=== PATIENT | female | born 1985 | race African-American/Black ===

== ENCOUNTER 2019-06-01 09:51 | Observation (INO) ==
--- NOTE | 2019-06-01 10:35 | Diag Imaging Result Doc PS360 ---
EXAM: CHEST-2 VIEWS - 06/01/2019 HISTORY: palpitations TECHNIQUE: Chest two views COMPARISON: 10/03/2011 FINDINGS: Heart size appears upper normal and stable. The lungs appear clear. There is no pleural effusion or pneumothorax identified. IMPRESSION: No evidence of acute disease. Electronically signed by Nima Valdes 06/01/2019 10:32 AM
[2019-06-01] MEDS ORDERED: LOPRESSOR IV ONE (10:44)
[2019-06-01 11:21] LABS: URINE SOURCE CLEAN CATCH
--- NOTE | 2019-06-01 11:21 | PROVIDER DOCUMENTATION ---
This chart was entered by Negar [place] Scribe, acting as scribe for Minerva Mcdonald MD. HPI-Cardiac General - General Chief Complaint: Palpitations Stated Complaint: HEART RACING Time Seen by Provider: 06/01/19 10:48 Source: patient, family Allergies/Adverse Reactions: Patient Allergies Allergy/AdvReac Type Severity Reaction Status Date / Time Penicillins Allergy Unknown Verified 09/25/18 21:00 Home Medications: Home Medication List Medication Instructions Recorded Confirmed Last Taken Type Azithromycin [Zithromax Z-Uriel] 250 mg PO DIRECTED #1 pkg 01/18/15 Unknown Rx Meclizine HCl [Antivert] 25 mg PO QHS #14 tablet 01/18/15 Unknown Rx Cephalexin [Keflex] 500 mg PO TID #20 cap 09/25/18 Unknown Rx Ibuprofen [Motrin] 600 mg PO Q6HR #30 tab 09/25/18 Unknown Rx - History of Present Illness-Cardiac Nature of Presenting Problem: Pt is a 34 yobf with c/o of a racing heart rate that she woke up with at 6 am this morning. Pt states that laying on her right side reduced symptoms but whenever she moved her heart would speed back up. Pt denies hx of heart problems and states that testing last year at PCP was -thyroid problems. Pt states she has vertigo but is otherwise healthy. Pt states she started taking vit D 5000 mg for the first time last night but denies any medication changes. Endorses lightheadedness, slight headache and urinary frequency. Pt is alert and nontoxic in appearance. Location: reports: central Quality of Pain: reports: none Severity in ED: moderate Onset/Duration: abrupt, 4-6 hours ago Timing: still present, constant Context/Activities at Onset: reports: sleep Palpitation Quality: irregular History of arrythmia: reports: none Nitro Today/Relief: reports: no nitro taken today Aspirin Treatment Today: reports: no aspirin today Prior Chest Pain/Cardiac Workup: reports: no prior chest pain, no prior cardiac workup Associated Symptoms: reports: dizziness, headache. denies: abdominal pain, back pain, diaphoresis, fatigue, fever/chills, nausea, shortness of breath, syncope, vomiting Similar Symptoms Previously?: No Review of Systems - Adult - REVIEW OF SYSTEMS - ADULT Constitutional: denies: chills Eyes: reports: no symptoms reported Ears, Nose, Mouth & Throat: reports: no symptoms reported Cardiovascular: reports: see HPI, irregular heart rate, palpitations. denies: chest pain, syncope Respiratory: reports: see HPI. denies: cough, shortness of breath Gastrointestinal: reports: see HPI. denies: abdominal pain, vomiting Genitourinary: reports: see HPI, frequency Musculoskeletal: denies: back pain, muscle weakness Integumentary: reports: no symptoms reported Neurological: reports: see HPI, dizziness/vertigo, headache/migraines Psychiatric: reports: no symptoms reported Endocrine: reports: no symptoms reported Hematologic/Lymphatic: reports: no symptoms reported Allergic/Immunologic: reports: no symptoms reported All Other Systems: Reviewed and Negative Past History - Adult - PAST MEDICAL HISTORY-ADULT Review of Records: reports: Old Records Reviewed, Nursing Assessment Review, Medications Reviewed, Social history reviewed & non-contributory. Major Childhood Illnesses: reports: denies history Cardiovascular: reports: denies history Respiratory: reports: denies history Gastrointestinal: reports: denies history Genitourinary: reports: denies history Musculoskeletal: reports: denies history Neurological: reports: denies history Endocrine/Immune: reports: denies history Other Conditions: reports: other (vertigo) - PRIOR SURGERIES/PROCEDURES Surgical/Procedure History: reports: cholecystectomy, hysterectomy, - IMMUNIZATION STATUS Childhood Immunizations: See Nurse Assessment Flu Vaccine: See Nurse Assessment - FAMILY HISTORY Family History: reviewed, not pertinent - SOCIAL HISTORY Smoking: non-smoker Substance Use: denies Living Situation: family () Physical Exam-General - PHYSICAL EXAM-ADULT Initial Vital Signs Reviewed: Yes (HR 115) - CONSTITUTIONAL General Appearance: appears well, alert, no apparent distress - EYES Eyes: PERRL/EOMI, pink conjunctivae - HEAD, EARS, NOSE, MOUTH & THROAT HENMT: normocephalic/atraumatic, moist mucous membranes, normal ENT inspection - NECK Neck: non-tender, full range of motion, supple, normal inspection - RESPIRATORY Respiratory: chest non-tender, lungs clear, normal breath sounds, no respiratory distress, no accessory muscle use - CARDIOVASCULAR Cardiovascular: normal peripheral pulses, tachycardia, irregularly irregular (Afib) - GASTROINTESTINAL (ABDOMEN) Abdominal Exam: normal bowel sounds, non tender, soft - MUSCULOSKELETAL Back Exam: normal inspection, no vertebral tenderness Extremity: normal range of motion, non-tender, normal gait, normal inspection, no pedal edema - SKIN Integumentary: normal color, normal turgor, warm/dry - NEUROLOGIC Neurologic: grossly normal - PSYCHIATRIC Psych/Mental Status: normal mood/affect, normal thought content, normal thought process, oriented x 3 - HEART Score HEART Score: History: Moderately Suspicious HEART Score: ECG: Non-Specific Repolarization Disturbance/LBBB/PM HEART Score: Age: < or = 45 Years HEART Score: Risk Factors for Atherosclerotic Disease: 1 or 2 Risk Factors HEART Score: Troponin: < or = Normal Limit Total HEART Score:: 3 Progress - PLAN OF CARE/RESULTS Progress/Plan/Lab Results: Vital Signs - 8 hr 06/01/19 09:56 06/01/19 10:56 06/01/19 11:34 Temperature 97.6 F Pulse Rate 115 H 108 H 92 H Respiratory Rate 16 16 18 Blood Pressure 173/140 120/88 119/75 O2 Sat by Pulse Oximetry 98 96 96 06/01/19 13:06 Temperature Pulse Rate 98 H Respiratory Rate 13 Blood Pressure 116/89 O2 Sat by Pulse Oximetry 99 Laboratory Results - last 24 hr 06/01/19 06/01/19 06/01/19 10:40 10:40 10:40 WBC 8.85 RBC 4.76 Hgb 13.6 Hct 41.8 MCV 87.8 MCH 28.6 MCHC 32.5 L RDW Std Deviation 14.7 H Plt Count 278 MPV 10.7 H Immature Gran % (Auto) 0.2 Neut % (Auto) 39.1 L Lymph % (Auto) 48.9 [place] % (Auto) 9.0 Eos % (Auto) 2.6 Baso % (Auto) 0.2 Immature Gran # (Auto) 0.02 Neut # (Auto) 3.45 Lymph # (Auto) 4.33 H [place] # (Auto) 0.80 H Eos # (Auto) 0.23 Baso # (Auto) 0.02 PT INR PTT (Actin FS) D-Dimer, Quantitative Sodium 139 Potassium 4.5 Chloride 104 Carbon Dioxide 21 L Anion Gap 14 BUN 15 Creatinine 0.6 Estimated GFR/1.73 m2 > 60 BUN/Creatinine Ratio 25 Glucose 93 Calculated Osmolality 278 Calcium 9.8 Total Bilirubin 0.40 AST 18 ALT 18 Alkaline Phosphatase 68 Troponin T High Sens Bgh-C-Ikmlfaxwbxi Pept Total Protein 7.8 Albumin 4.4 Globulin 3.0 Albumin/Globulin Ratio 1.0 TSH 1.70 Free T4 1.36 Urine Source Urine Color Urine Turbidity Urine pH Ur Specific [place] Urine Protein Ur Glucose (Stick) Ur Ketones (Stick) Urine Blood Urine Nitrite Urine Bilirubin Urobilinogen Dipstick Urine Leukocytes Urine WBC (Auto) Urine RBC (Auto) U Epithel Cells (Auto) Urine Bacteria (Auto) Urine Opiates Screen Ur Oxycodone Screen Urine Methadone Screen U Propoxyphene Qual Ur Barbituates Screen Ur Tricyclics Screen Ur Phencyclidine Scrn Ur Amphetamines Screen U Methamphetamines Scrn U Benzodiazepines Scrn Urine Cocaine Screen U Cannabinoids Screen 06/01/19 06/01/19 06/01/19 10:40 10:40 10:40 WBC RBC Hgb Hct MCV MCH MCHC RDW Std Deviation Plt Count MPV Immature Gran % (Auto) Neut % (Auto) Lymph % (Auto) [place] % (Auto) Eos % (Auto) Baso % (Auto) Immature Gran # (Auto) Neut # (Auto) Lymph # (Auto) [place] # (Auto) Eos # (Auto) Baso # (Auto) PT 12.6 INR 0.90 PTT (Actin FS) 30.9 D-Dimer, Quantitative Sodium Potassium Chloride Carbon Dioxide Anion Gap BUN Creatinine Estimated GFR/1.73 m2 BUN/Creatinine Ratio Glucose Calculated Osmolality Calcium Total Bilirubin AST ALT Alkaline Phosphatase Troponin T High Sens 7 Zal-X-Oqljdbhnqvu Pept 198 H Total Protein Albumin Globulin Albumin/Globulin Ratio TSH Free T4 Urine Source Urine Color Urine Turbidity Urine pH Ur Specific [place] Urine Protein Ur Glucose (Stick) Ur Ketones (Stick) Urine Blood Urine Nitrite Urine Bilirubin Urobilinogen Dipstick Urine Leukocytes Urine WBC (Auto) Urine RBC (Auto) U Epithel Cells (Auto) Urine Bacteria (Auto) Urine Opiates Screen Ur Oxycodone Screen Urine Methadone Screen U Propoxyphene Qual Ur Barbituates Screen Ur Tricyclics Screen Ur Phencyclidine Scrn Ur Amphetamines Screen U Methamphetamines Scrn U Benzodiazepines Scrn Urine Cocaine Screen U Cannabinoids Screen 06/01/19 06/01/19 06/01/19 10:40 11:19 11:19 WBC RBC Hgb Hct MCV MCH MCHC RDW Std Deviation Plt Count MPV Immature Gran % (Auto) Neut % (Auto) Lymph % (Auto) [place] % (Auto) Eos % (Auto) Baso % (Auto) Immature Gran # (Auto) Neut # (Auto) Lymph # (Auto) [place] # (Auto) Eos # (Auto) Baso # (Auto) PT INR PTT (Actin FS) D-Dimer, Quantitative 0.68 H Sodium Potassium Chloride Carbon Dioxide Anion Gap BUN Creatinine Estimated GFR/1.73 m2 BUN/Creatinine Ratio Glucose Calculated Osmolality Calcium Total Bilirubin AST ALT Alkaline Phosphatase Troponin T High Sens Xyd-X-Zvziwssjlme Pept Total Protein Albumin Globulin Albumin/Globulin Ratio TSH Free T4 Urine Source CLEAN CATCH Urine Color STRAW Urine Turbidity CLEAR Urine pH 6.0 Ur Specific [place] 1.011 Urine Protein NEGATIVE Ur Glucose (Stick) NEGATIVE Ur Ketones (Stick) NEGATIVE Urine Blood TRACE A Urine Nitrite NEGATIVE Urine Bilirubin NEGATIVE Urobilinogen Dipstick NORMAL Urine Leukocytes NEGATIVE Urine WBC (Auto) <10 Urine RBC (Auto) <10 U Epithel Cells (Auto) <10 Urine Bacteria (Auto) NEGATIVE Urine Opiates Screen NONE DETECTED Ur Oxycodone Screen NONE DETECTED Urine Methadone Screen NONE DETECTED U Propoxyphene Qual NONE DETECTED Ur Barbituates Screen NONE DETECTED Ur Tricyclics Screen NONE DETECTED Ur Phencyclidine Scrn NONE DETECTED Ur Amphetamines Screen NONE DETECTED U Methamphetamines Scrn NONE DETECTED U Benzodiazepines Scrn NONE DETECTED Urine Cocaine Screen NONE DETECTED U Cannabinoids Screen NONE DETECTED Orders Category Date Time Status If abnormal EKG, order: NOW Care 06/01/19 09:59 Active CHEST-2 VIEWS [RAD] Stat Exams 06/01/19 09:59 Completed CTA [CT ANGIOGRM PULMONARY ARTERIES] [CT] Stat Exams 06/01/19 12:20 Completed CBC WITH ELECTRONIC DIFF [HEME] Stat Lab 06/01/19 10:40 Completed COMPREHENSIVE METABOLIC PANEL [CHEM] Stat Lab 06/01/19 10:40 Completed D-DIMER [COAG] Stat Lab 06/01/19 10:40 Completed FREE T4 Stat Lab 06/01/19 10:40 Completed PRO B-NATRIURETIC PEPTIDE Stat Lab 06/01/19 10:40 Completed PROTIME WITH INR [COAG] Stat Lab 06/01/19 10:40 Completed PTT [COAG] Stat Lab 06/01/19 10:40 Completed TROPONIN T HIGH SENSITIVITY Stat Lab 06/01/19 10:40 Completed TSH Stat Lab 06/01/19 10:40 Completed URINALYSIS W/POSS RFLX CULT [URINALYSIS] Stat Lab 06/01/19 11:19 Com[address] URINE DRUG SCREEN PL Stat Lab 06/01/19 11:19 Completed Metoprolol [Lopressor] Med 06/01/19 10:44 Discontinued 5 mg IV NOW ONE CP/Palp <45 No Known Cardiac Hx Stat Oth 06/01/19 09:59 Ordered EKG [EKG] Stat Ther 06/01/19 09:59 Draft Echo Spec/Color Doppler Routine Ther 06/01/19 13:29 Ordered Venous U/S Bilateral Legs Routine Ther 06/01/19 13:30 Ordered Patient with new onset afib with RVR. Given metoprolol IV and rate controlled. Ddimer slightly elevated but CTA negative for PE. Showing small pleural effusion. Other labs WNL. Spoke to Dr Daniel, recreation therapy teacher for hosp who accepted [facility] for admission. Further orders to be placed by their team Result Diagrams: 06/01/19 10:40 06/01/19 10:40 - EKG 1 Time of EKG reading by physician:: 10:40 EKG Read and Signed by:: Minerva Mcdonald EKG Interpretation (*Must complete 3 of following elements*): Abnormal Rate: 151 Rhythm: Afib ith RVR [place]: normal QRS: normal [place] Interval: normal ST Wave: normal Prior EKG Comparison: no prior EKG - XRAY 1 XRAY Study: Chest (EXAM: CHEST-2 VIEWS - 06/01/2019 HISTORY: palpitations TECHNIQUE: Chest two views COMPARISON: 10/03/2011 FINDINGS: Heart size appears upper normal and stable. The lungs appear clear. There is no pleural effusion or pneumothorax identified. IMPRESSION: No evidence of acute disease. Electronically signed by Nima Valdes 06/01/2019 10:32 AM) - CT/MRI 1 CT Study: Thorax (EXAM: CT ANGIOGRAM PULMONARY ARTERIES 06/01/2019 HISTORY: new onset afib, elevated ddimer TECHNIQUE: This exam was performed using automated exposure control, adjustment of mA or kV according to patient size, and/or use of iterative reconstruction technique. COMMENT: 3-D MIPS were performed. There are no previous studies. There are no filling defects in the pulmonary arteries. The aorta is nondistended and there is no evidence of dissection. There is a small pericardial effusion which measures 5 mm over the apex. There are no pleural fluid collections. There is no evidence of acute pulmonary parenchymal disease. There is no evidence of significant abnormality in the visualized portion of the abdomen. The regional skeleton is intact. IMPRESSION: No e vidence of pulmonary emboli. Small pericardial effusion. Electronically signed by Phil Jett 06/01/2019 12:54 PM) Departure - Departure Date of Disposition Decision: 06/01/19 Time of Disposition Decision: 13:13 DIAGNOSIS: New onset a-fib, Chest pain Disposition: ADMITTED INPATIENT 09 Certified Medical Emergency: Emergent Condition: Stable Referrals and Follow-Ups: Alicia Rodriguez CRNP [Primary Care Provider] - - Critical Care Note This patient required my direct & personal management of CC.: Yes Total Time (mins): 35 Critical Care Statement: This patient required my direct personal management to treat or rule out processes, the absence of which, could potentiallly result in sudden, clinically significant life or limb threatening deterioration. Attestation - Physician/ MURTAZA Attestation Patient care was provided by Advanced Practice Provider:: No The physician spent face to face time with patient:: Yes Advanced Practice Provider documentation review:: Supervising physician onsite and consulted in the evaluation and care of this patient. The physician did have a face to face encounter with the patient. This chart was documented by the indicated scribe, (Negar [place], Phuong) and accurately reflects the services I performed and decisions made by me, Minerva Mcdonald MD, as attested by the provider's signature.
[2019-06-01 11:36] LABS: BILIRUBIN URINE NEGATIVE (NEGATIVE); BLOOD URINE TRACE (NEGATIVE); COLOR STRAW; GLUCOSE URINE NEGATIVE (NEGATIVE); KETONE URINE NEGATIVE (NEGATIVE); LEUKOCYTES URINE NEGATIVE (NEGATIVE); NITRITE URINE NEGATIVE (NEGATIVE); PROTEIN URINE NEGATIVE (NEGATIVE); SP GRAVITY URINE 1.011; TURBIDITY URINE CLEAR (CLEAR); UROBILINOGEN URINE NORMAL (NORMAL)
[2019-06-01 11:37] LABS: UR EPITHELIAL CELLS <10 /HPF (<10); URINE BACTERIA NEGATIVE /HPF; URINE RBC <10 /HPF (<10); URINE WBC <10 /HPF (<10)
[2019-06-01 11:40] LABS: UR AMPHETAMINES QUAL NONE DETECTED (NONE DETECT); UR BARBITUATES QUAL NONE DETECTED (NONE DETECT); UR BENZODIAZEPIN QUAL NONE DETECTED (NONE DETECT); UR CANNABINOIDS QUAL NONE DETECTED (NONE DETECT); UR COCAINE QUAL NONE DETECTED (NONE DETECT); UR METHADONE QUAL NONE DETECTED (NONE DETECT); UR METHAMPHETAMINE QUAL NONE DETECTED (NONE DETECT); UR OPIATES QUAL NONE DETECTED (NONE DETECT); UR OXYCODONE QUAL NONE DETECTED (NONE DETECT); UR PCP QUAL NONE DETECTED (NONE DETECT); UR PROPOXYPHENE QUAL NONE DETECTED (NONE DETECT); UR TCA QUAL NONE DETECTED (NONE DETECT)
[2019-06-01 11:45] LABS: BASO# 0.02 X1000 (0.0-0.2); BASO% 0.2 % (0.0-0.8); EOS# 0.23 X1000 (0.0-0.7); EOS% 2.6 % (0.0-10.0); HEMATOCRIT 41.8 % (37.0-47.0); HEMOGLOBIN 13.6 g/dL (12.0-16.0); IMM GRAN# 0.02 X1000 (0.0-0.04); IMM GRAN% 0.2 % (0.0-0.5); LYMPH# 4.33 X1000 (1.2-3.4); LYMPH% 48.9 % (20.5-51.1); MCH 28.6 PG (27-31); MCHC 32.5 g/dL (33-37); MCV 87.8 FL (81-99); MPV 10.7 FL (7.4-10.4); NEUT# 3.45 X1000 (1.4-6.5); NEUT% 39.1 % (42.2-75.2); PLT 278 X1000 (130-400); RBC 4.76 XMIL (4.2-5.4); RDW 14.7 % (11.5-14.5); WBC 8.85 X1000 (4.8-10.8)
[2019-06-01 11:57] LABS: INR 0.9; PROTIME 12.6 Seconds (11.0-16.0)
[2019-06-01 11:58] LABS: PTT 30.9 Seconds (22.3-41.8)
[2019-06-01 12:04] LABS: AGAP 14; ALBUMIN 4.4 g/dL (3.5-5.0); ALKALINE PHOSPHATASE 68 U/L (32-104); BUN 15 mg/dL (8-22); CALCIUM 9.8 mg/dL (8.8-10.2); CHLORIDE 104 mmol/L (98-107); COSMO 278; CREATININE 0.6 mg/dL (0.5-0.9); ESTIMATED GFR > 60; GLUCOSE 93 mg/dL (70-104); GOT 18 U/L (10-30); GPT 18 U/L (10-36); POTASSIUM 4.5 mmol/L (3.5-5.1); SODIUM 139 mmol/L (136-145); TCO2 21 mmol/L (25-35); TOTAL PROTEIN 7.8 g/dL (6.3-8.3)
[2019-06-01 12:15] LABS: FREE T4 1.36 ng/dL (0.93-1.70); TSH 1.7 uIUmL (0.27-4.20)
--- NOTE | 2019-06-01 12:16 | EKG Report ---
Test Performed on : 06/01/2019 10:31:57 AM Test Reason : palpatations Blood Pressure : / mmHG Vent. Rate : 151 BPM Atrial Rate : 163 BPM P-R Int : 000 ms QRS Dur : 078 ms QT Int : 284 ms P-R-T Axes : 000 008 019 degrees QTc Int : 450 ms Atrial fibrillation. with rapid ventricular response. Abnormal ECG No previous ECGs available Unconfirmed Result
--- NOTE | 2019-06-01 12:56 | Diag Imaging Result Doc PS360 ---
EXAM: CT ANGIOGRAM PULMONARY ARTERIES 06/01/2019 HISTORY: new onset afib, elevated ddimer TECHNIQUE: This exam was performed using automated exposure control, adjustment of mA or kV according to patient size, and/or use of iterative reconstruction technique. COMMENT: 3-D MIPS were performed. There are no previous studies. There are no filling defects in the pulmonary arteries. The aorta is nondistended and there is no evidence of dissection. There is a small pericardial effusion which measures 5 mm over the apex. There are no pleural fluid collections. There is no evidence of acute pulmonary parenchymal disease. There is no evidence of significant abnormality in the visualized portion of the abdomen. The regional skeleton is intact. IMPRESSION: No evidence of pulmonary emboli. Small pericardial effusion. Electronically signed by Phil Jett 06/01/2019 12:54 PM
[2019-06-01] MEDS ORDERED: ZOFRAN IV PRN (14:41)
[2019-06-01] MEDS ORDERED: TYLENOL PO PRN (14:41)
[2019-06-01] MEDS ORDERED: LOVENOX SUBQ SCH (15:30)
[2019-06-01] MEDS ORDERED: CARDIZEM IV ONE (15:44)
--- NOTE | 2019-06-01 15:54 | Vascular Study Report ---
EXAM: Venous U/S Bilateral Legs - 06/01/2019 HISTORY: elevated d-dimer TECHNIQUE: Bilateral lower extremity Doppler venous ultrasound COMPARISON: None. FINDINGS: The deep veins of the bilateral lower extremities demonstrate flow and compressibility. There are no filling defects identified. IMPRESSION: No evidence of deep venous thrombosis in either lower extremity. Electronically signed by Nima Valdes 06/01/2019 3:52 PM
--- NOTE | 2019-06-01 16:53 | ECHO REPORT ---
ORDER DATE: 06/01/2019 INTERPRETING PHYSICIAN: Quinn Nolasco MD INDICATION: A 34-year-old female with atrial fibrillation and pericardial effusion. M-MODE MEASUREMENTS: Left ventricle end diastole: 5.5 cm. Left ventricle end systole: 4.3 cm. Posterior wall: 1.1 cm. Interventricular septum: 1.3 cm. Left atrium: 4.1 cm. Aortic diameter: 2.9 cm. SUMMARY OF 2-DIMENSIONAL IMAGING: The study is very difficult. 1. The left ventricular systolic function appears to be moderately impaired at 42%. The patient is in atrial fibrillation. The left atrium appears to be at least mildly enlarged. 2. The aortic valve looks normal. Color flow mapping unremarkable. 3. The mitral valve shows a mild degree of regurgitation. 4. Pulse wave Doppler of mitral inflow shows a single filling wave. 5. The pulmonic valve is normal. Color flow mapping is unremarkable. 6. The tricuspid valve looks normal. Color flow mapping is hard to see due to poor windows. 7. The pulmonary pressure is probably normal. 8. A very small pericardial effusion is present, that is not causing any hemodynamic compromise. It appears to be circumferential. 9. There is no evidence of mass or thrombus. 10.The right-sided chambers do not appear to be dilated. Clinical correlation recommended. cc: MD Delia Reyes CRNP
--- NOTE | 2019-06-01 18:26 | HISTORY AND PHYSICAL ---
CHIEF COMPLAINT: Fast heart rate, palpitations. HISTORY OF PRESENT ILLNESS: This is a 34-year-old female who presented to the emergency room after waking up with a feeling that her heart was racing. She did state that at first she could lay on her right side, and symptoms would reduce somewhat, although anytime she moved her heart rate would speed back up. She states that she has had episodes of palpitations and fast heart rate over the past 2 to 3 years. It was never caught on telemetry, although it was felt that thyroid could be an issue, although she stated it tested normal. She does have a family history of atrial fibrillation, having siblings that have atrial fibrillation. She also has siblings that have obstructive sleep apnea, and her states she does snore and has breathing pauses throughout the night. PAST MEDICAL HISTORY: Seasonal allergies. PAST SURGICAL HISTORY: Cholecystectomy, section, hysterectomy. SOCIAL HISTORY: She is . She has sisters that are close and active in her care. She denies any alcohol, tobacco, or illicit drug use. ALLERGIES: Penicillin. HOME MEDICATIONS: A list will be obtained by the nursing staff, and once verified, we will review and restart as appropriate. REVIEW OF SYSTEMS: Discussed with patient with pertinent positives stated in the HPI. She denied any syncope or dizziness, any chest pain, any fevers or chills, a productive cough, any nausea, vomiting, diarrhea, constipation, black or bloody vomitus or stools, any hematuria, dysuria, frequency, urgency. PHYSICAL EXAMINATION: GENERAL: This is a 34-year-old female who is sitting up on the stretcher in the emergency room in no distress. VITAL SIGNS: Blood pressure is 116/89 with a heart rate of 98, respirations are 16, temperature is 97.9 degrees with room air saturations 96% to 99%. EYES: Pupils are equal, round, react to light. EOMs are intact. Sclerae are anicteric. HENT: Head is normocephalic, atraumatic. Mucous membranes are moist. NECK: Supple with trachea midline. CARDIOVASCULAR: Irregularly irregular rate and rhythm. S1 and S2 appreciated. No rubs, murmurs or gallops. Calves are nontender bilateral with peripheral pulses palpable x4 extremities. PULMONARY: Breath sounds are clear with no increased work of breathing noted. Chest rises and falls symmetric with respiration. Chest wall is nontender to palpation. GASTROINTESTINAL: Abdomen is soft, nontender, nondistended with bowel sounds in all 4 quadrants. GENITOURINARY: No CVA or suprapubic tenderness. NEUROLOGIC: She is alert and oriented x3. SKIN: Warm and dry. LABORATORY DATA: WBC is 8.8 with hemoglobin 13.6, hematocrit 41.8, platelets of 278,000. Sodium 139, potassium 4.5, BUN 15, creatinine 0.6 with a glucose of 93. Urinalysis is essentially negative. Urine drug screen reveals none detected. INR 0.90, with a D-dimer of 0.68. DIAGNOSTIC DATA: 1. Chest x-ray revealed no evidence of acute disease. 2. Pulmonary arteriogram. No evidence of pulmonary emboli, small pericardial effusion. 3. Bilateral lower extremity Doppler. No evidence of DVT in either extremity. 4. Echocardiogram is pending. ASSESSMENT AND PLAN: 1. New onset of atrial fibrillation, rapid ventricular response. She was given 5 of Lopressor in the emergency room. Heart rates have primarily stayed in the 80s to 90s with systolic pressures in the 112 to 116 range. Heart rates do go up in the 140s to 150s with movement as in turning over or repositioning herself on the stretcher, but once that movement stops, heart rates are dropping down to 80s or 90s so we will continue to monitor. If they increase consistently, we will treat with Cardizem. We will consult Cardiology. We will obtain an echocardiogram. 2. Elevated D-dimer. CTA pulmonary was negative for pulmonary embolism. We will get a bilateral lower extremity Doppler. 3. Presumed obstructive sleep apnea. The patient and her have been encouraged strongly to have her PCP schedule a sleep study once cardiology okays. 4. Small pericardial effusion on CTA pulmonary. We will obtain an echocardiogram. Lovenox 1 mg/kg b.i.d. and she can be transitioned over to oral anticoagulation. She will be transferred to [facility] for Cardiology following. Plan was discussed with Dr. Daniel. Further treatments pending hospital course. Dictated by NAIDA Lindsay for Win Daniel MD cc: NAIDA Lindsay MD
[2019-06-01] MEDS ORDERED: CARDIZEM 100 MG/NS 100 MG/100 ML IVPB ONE (20:40)
[2019-06-01] MEDS: CARDIZEM 100 MG/NS 100 MG/100 ML IVPB IV SCH ×2 (21:07→22:14)
[2019-06-02] MEDS ORDERED: CARDIZEM 100 MG/NS 100 MG/100 ML IVPB IV SCH
[2019-06-02] MEDS ORDERED: ZOFRAN IV PRN (00:16)
[2019-06-02] MEDS ORDERED: LOVENOX SUBQ SCH (03:30)
[2019-06-02 06:11] LABS: HEMATOCRIT 40.1 % (37.0-47.0); HEMOGLOBIN 13.3 g/dL (12.0-16.0); MCH 29.1 PG (27-31); MCHC 33.2 g/dL (33-37); MCV 87.7 FL (81-99); MPV 9.6 FL (7.4-10.4); RBC 4.57 XMIL (4.2-5.4); RDW 14.7 % (11.5-14.5); WBC 7.13 X1000 (4.8-10.8)
--- NOTE | 2019-06-02 06:34 | HISTORY AND PHYSICAL ---
Patient presented to the hospital with racing heart. She actually has a very strong family history of obstructive sleep apnea and several family members with atrial fibrillation. Currently she is in atrial fibrillation with rapid rate. We are going to admit to the hospital, place her on Cardizem drip and we will follow. She will need an echocardiogram and further workup. cc: Win Daniel MD
[2019-06-02 07:58] LABS: AGAP 12; ALBUMIN 3.6 g/dL (3.5-5.0); ALKALINE PHOSPHATASE 57 U/L (32-104); BUN 16 mg/dL (8-22); CALCIUM 9.6 mg/dL (8.8-10.2); CHLORIDE 106 mmol/L (98-107); COSMO 279; CREATININE 0.7 mg/dL (0.5-0.9); ESTIMATED GFR > 60; GLUCOSE 108 mg/dL (70-104); GOT 19 U/L (10-30); GPT 15 U/L (10-36); POTASSIUM 4.1 mmol/L (3.5-5.1); SODIUM 139 mmol/L (136-145); TCO2 21 mmol/L (25-35); TOTAL BILIRUBIN 0.36 mg/dL (0.20-1.00); TOTAL PROTEIN 7.1 g/dL (6.3-8.3)
--- NOTE | 2019-06-02 08:11 | EKG Report ---
Test Performed on : 06/02/2019 07:59:31 AM Test Reason : rhythm change Blood Pressure : / mmHG Vent. Rate : 089 BPM Atrial Rate : 089 BPM P-R Int : 194 ms QRS Dur : 084 ms QT Int : 372 ms P-R-T Axes : 060 031 039 degrees QTc Int : 452 ms Normal sinus rhythm. with sinus arrhythmia. Normal ECG When compared with ECG of 01-JUN-2019 10:31, (Unconfirmed) Sinus rhythm. has replaced Atrial fibrillation. Vent. rate has decreased BY 62 BPM Confirmed by Leno Rangel MD ([id number]) on 06/03/2019 12:15:05 PM
--- NOTE | 2019-06-02 12:24 | CARDIOLOGY CONSULTATION ---
DATE: 06/02/2019 REQUESTING PHYSICIAN: Hospitalist Service. REASON FOR CONSULTATION: Atrial fibrillation with rapid ventricular response. CHIEF COMPLAINT: Palpitations. HISTORY: Ms. Fischer is a 34-year-old, black female, who was healthy up until the moment of onset of her symptoms. She says that she woke up on 06/01/2019 at about 6:00 in the morning, complaining of palpitations. This went on for a couple of hours without clear relief. Because she had some discomfort, she took aspirin, and ended up coming into the ER over at [facility] shortly thereafter. In the ER, they did a chest x-ray at about 10:00 in the morning that showed no evidence of acute disease. ECG done at 10:31 in the morning showed atrial fibrillation with rapid response, no acute changes. The patient had a pulmonary arteriogram that showed no evidence of pulmonary emboli, a small pericardial effusion noted. Echocardiogram was done yesterday that shows that the left ventricular systolic function is moderately impaired at 42%. The valvular structures were normal. There was a very small circumferential pericardial effusion. Venous ultrasound was negative. A D-dimer was minimally elevated, and that raised concern. ProBNP was also minimally elevated at 198 pg/mL, being normal up to 178 pg/ml. That was drawn at 10:40 in the morning yesterday. BUN and creatinine were normal. Blood sugar was normal. The patient says that her symptoms subsided when she woke up this morning. She was transferred at 1:30 in the morning from [facility] to this hospital, and upon awakening, she felt that she was back to normal. Subsequent EKG done this morning at 8:00 showed sinus rhythm without any ischemic changes, and I do not see any definite conclusive findings of acute pericarditis, although I cannot entirely exclude it. The patient says that the days prior to the onset of symptoms, she did not have any specific change in condition. PAST MEDICAL HISTORY: Really negative. She is not worried about any particular thing. Her main concern has been being overweight. Her body mass index is 47.1, body weight is 283 pounds. She says that before getting with her first child at the age of 20, her weight was 170 pounds, and subsequently she has gained. Before the second , she was about 220. Her last child was born when she was 26 years old. PAST SURGICAL HISTORY: She had cholecystectomy, partial hysterectomy, and two sections. HOME MEDICATIONS: At this time included vitamin D, Motrin, and meclizine. REVIEW OF SYSTEMS: No cardiovascular complaints in the recent past. has pointed out to her that she snores at night. She wakes up feeling tired. She has been concerned about having hypothyroidism. However, her thyroid function tests have been normal. She follows with NAIDA Burgos, in [facility] for her medical needs. SOCIAL HISTORY: She is for several years. She has 2 children. 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 She has been doing that for 2 years. Her job is sedentary. Not a smoker nor a drinker. FAMILY HISTORY: One sister at the age of 43, sudden , presumably heart attack. She has several sisters who are overweight. One of them has had bariatric surgery. REVIEW OF SYSTEMS: Otherwise, review of systems is noncontributory. She does not have any physical limitation to perform activities. PHYSICAL EXAMINATION: Vital Signs: This morning, blood pressure 95/60, temperature 98.6 degrees, pulse 88, respirations 17. General: The patient is awake, alert, oriented, in no distress. HEENT: Unremarkable. Chest: Clear to auscultation and percussion. Heart: Regular and rhythmic. No gallop or murmur. Abdomen: Obese, nontender. No masses. No hepatomegaly. Extremities: Good pulses. No peripheral edema. Neurological: Nonfocal. Moves all 4 extremities. IMPRESSION: 1. Patient with paroxysmal atrial fibrillation, has converted to sinus rhythm. 2. Systolic left ventricular dysfunction. 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 Because her pro BNP is only minimally elevated, this may be just simply something acute and related to rapid heart rate. 3. The patient is morbidly obese. 4. The patient is likely to have sleep apnea syndrome. 5. The patient had hypertension at the time of initial presentation in the emergency room at [facility] with a blood pressure of 173/140. RECOMMENDATION: At this time, we are going to treat the patient as a case of paroxysmal atrial fibrillation. We are going to start her on Cardizem by mouth. We will also add ramipril 5 mg twice a day because of left ventricular dysfunction and high blood pressure. Because of the decreased EF, her risk for stroke may be significantly greater than expected, and at least for next 3 months, I will put her on Eliquis 5 mg twice a day. I will arrange for followup with me at the office, and we will titrate her medications accordingly. We will do followup echocardiogram, and once her ejection fraction recovers and if there is no further recurrence of the atrial fibrillation, we may discontinue the Eliquis. In addition, I will make a referral to the Sleep Clinic because she probably needs CPAP mask, and we will initiate contacts with bariatric surgeon. She will be referred first to the dietitian for optimization of body weight by means of diet and exercise. Then, we will take it from there. At this time, the patient appears to be hemodynamically stable. I have requested inflammatory markers to make sure that she does not have pericarditis, and also a lipid panel to make sure that she does not have any serious dyslipidemia. Further advice will be forthcoming. cc: MD Win Reyes MD MTDD
[2019-06-02] MEDS: CARDIZEM PO SCH ×2 (13:57→20:41)
[2019-06-02] MEDS: TYLENOL PO PRN ×2 (15:15→22:58)
--- NOTE | 2019-06-02 20:37 | PROGRESS NOTE ---
DATE: 06/02/2019 SUBJECTIVE: She looks well. OBJECTIVE: Blood pressure is 102/74, heart rate 91, respiratory 18, temperature 98.2 degrees, 98% on room air.Cardiovascular: Regular rate and rhythm. Pulmonary: Bilateral breath sounds clear to auscultation. GI: Soft, nontender, nondistended. Bowel sounds are positive. 98% on room air. LABORATORY DATA: White count 7, hemoglobin and hematocrit 13 and 40, platelets 256,000. Basic was normal. PROBLEM LIST: 1. Atrial fibrillation with rapid ventricular response. She is now rate controlled. She has converted too. She is currently on Cardizem. I think she is off the drip. 2. Slight diminishment in her ejection fraction so we will continue to follow. DISPOSITION: Pending clinical status. Appreciate Dr. Nolasco's input. I anticipate we can discharge her tomorrow if stable. cc: MD Win Melendez MD
[2019-06-02] MEDS: ALTACE PO SCH (20:41)
[2019-06-02] MEDS: ELIQUIS PO SCH (20:41)
[2019-06-03] MEDS: CARDIZEM PO SCH ×2 (02:20→08:15)
[2019-06-03 07:31] LABS: AGAP 14; BUN 15 mg/dL (8-22); CALCIUM 9.1 mg/dL (8.8-10.2); CHLORIDE 103 mmol/L (98-107); COSMO 279; CREATININE 0.7 mg/dL (0.5-0.9); ESTIMATED GFR > 60; GLUCOSE 106 mg/dL (70-104); MAGNESIUM 1.7 mg/dL (1.5-2.7); POTASSIUM 3.7 mmol/L (3.5-5.1); SODIUM 139 mmol/L (136-145); TCO2 22 mmol/L (25-35)
[2019-06-03 07:51] VITALS: BP 113/69
[2019-06-03] MEDS: ELIQUIS PO SCH (08:15)
[2019-06-03] MEDS: ALTACE PO SCH (08:15)
[2019-06-03 08:51] LABS: BASO# 0.02 X1000 (0.0-0.2); BASO% 0.4 % (0.0-0.8); EOS% 3.5 % (0.0-10.0); HEMATOCRIT 39.8 % (37.0-47.0); HEMOGLOBIN 13.1 g/dL (12.0-16.0); LYMPH# 2.92 X1000 (1.2-3.4); LYMPH% 51.8 % (20.5-51.1); MCH 28.9 PG (27-31); MCHC 32.9 g/dL (33-37); MCV 87.7 FL (81-99); MONO# 0.45 X1000 (0.11-0.59); MPV 10.1 FL (7.4-10.4); NEUT# 2.05 X1000 (1.4-6.5); NEUT% 36.3 % (42.2-75.2); PLT 248 X1000 (130-400); RBC 4.54 XMIL (4.2-5.4); RDW 14.7 % (11.5-14.5); WBC 5.64 X1000 (4.8-10.8)
--- NOTE | 2019-06-03 10:37 | DISCHARGE SUMMARY ---
ADMISSION DATE: 06/01/2019 DISCHARGE DATE: 06/03/2019 PRIMARY CARE PROVIDER: NAIDA Burgos CONSULTATIONS: Quinn Nolasco MD, Cardiology PERTINENT PROCEDURES: 1. Echocardiogram shows an EF of 42%. 2. Pulmonary arteriogram showed no evidence of PE and small pericardial effusion. 3. Initial EKG atrial fibrillation with RVR. DISCHARGE DIAGNOSES: 1. Atrial fibrillation with rapid ventricular response, now rate controlled, converted to sinus rhythm on a Cardizem drip. She was transition to p.o. Cardizem. She will be discharged on p.o. Cardizem and Eliquis and will follow up with Dr. Nolasco in 2 to 3 weeks. 2. Systolic dysfunction with an ejection fraction of 42%. However, her proBNP was only minimally elevated, could be something that was only acutely related to her rapid heart rate. She is going to be followed by Dr. Nolasco. She will continue on her Altace. 3. Elevated D-dimer CT of the chest ruled out pulmonary embolus. 4. Obstructive sleep apnea. The patient has been encouraged to follow up with her PCP and get a sleep study as an outpatient. 5. Morbid obesity. The patient has been advised about weight loss following a healthy heart diet. 6. Hypertension. Continue home regimen. HOSPITAL COURSE: Briefly, Ms. Fischer is a 34-year-old female with no real past medical history, presented to the ED on 06/01/2019 complaining of heart palpitations with chest discomfort. EKG showed atrial fibrillation with RVR. She had an elevated D- dimer and CT of the chest ruled out a PE. There was a small pericardial effusion noted. Echocardiogram was pursued that showed a EF of 42%. Her venous Dopplers were negative for DVT. She was initiated on a Cardizem drip and transferred to [facility] for Cardiology consult. She converted to a normal sinus rhythm and was transitioned to p.o. Cardizem. She has maintained her normal sinus rhythm and was initiated on Eliquis as well and she will discharge home with self care to follow up with Dr. Nolasco in 2 to 3 weeks as well as her primary care provider. VITAL SIGNS: At time of discharge, temperature is 97.9 degrees, heart rate 79, respirations 16, blood pressure 113/69, O2 is 99% on room air. DISCHARGE DIET: Healthy Heart. DISCHARGE MEDICATIONS: 1. Vitamin D 5000 units p.o. q.7 days. 2. Antivert 25 mg p.o. at bedtime. 3. Altace 2.5 mg p.o. b.i.d. 4. Cardizem CD 240 mg p.o. daily. 5. Eliquis 5 mg p.o. b.i.d. 6. Tylenol 650 mg p.o. q.6 hours p.r.n. FOLLOWUP: Ms. Fischer is being discharged back home with self care. She is to follow up with Dr. Nolasco in the next 2 to 3 weeks as well as her primary care physician to set up an outpatient sleep study for her sleep apnea. She has been encouraged to follow a healthy heart diet as well as diet and exercise. She can return to the ED or call 911 for any worsening of symptoms. Dictated by NAIDA Carter for Gordon Lee MD Addendum: Patient seen and examined by myself. Agree with NAIDA note. It reflects my assessment and plan. Patient is being discharged in stable condition. Will be seen by [facility] in 2 to 3 weeks. cc: MD Win Schulte MD Alicia L. Hamman, CRNP Luis N. Villanueva, MD MTDD
--- NOTE | 2019-06-03 10:44 | CARDIOLOGY PROGRESS NOTE ---
DATE: 06/03/2019 CHIEF COMPLAINT: Shortness of breath, irregular heartbeat. SUBJECTIVE: Mrs. Fischer is clinically doing better. Her telemetry shows sinus rhythm. She has no chest pain or dyspnea at this time. A lipid panel was checked yesterday from her morning blood work and it shows a total cholesterol of 192 mg/dL, HDL 50 mg/dL, LDL 131 mg/dL. This was a direct LDL. Triglycerides 118 mg/dL. OBJECTIVE: Vital signs: Her vital signs today, blood pressure 113/69, temperature 97.9, pulse 79, respirations 15. General: She is awake, alert, in no distress. HEENT: Unremarkable. Chest: Clear to auscultation and percussion. Heart: Sounds regular and rhythmic. No gallop or murmur. Abdomen: Obese, nontender. Extremities: Show good pulses. No edema. Neurologic exam: Follows commands, moves all 4 extremities. IMPRESSION: 1. Patient who presented with dyspnea and palpitations. Paroxysmal atrial fibrillation has been found. 2. Systolic left ventricular dysfunction. 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 3. Morbid obesity. 4. Strong suspicion of sleep apnea syndrome. RECOMMENDATIONS: At this time, the patient is going to be discharged on Eliquis 5 mg twice a day, diltiazem, I probably will switch her over to a long-term form of it 240 mg daily, ramipril 5 mg twice a day, and we will arrange for a followup visit with us. We really need to refer her to a dietitian, to a sleep clinic, and probably hook her up with the bariatric surgical team in [place] for consideration of gastric bypass or a similar procedure in the near future. My concern is that with her left ventricular dysfunction her prognosis really changes dramatically and a more aggressive approach needs to be taken in her case. We will arrange for followup with my office. cc: MD Win Reyes MD MTDD
== END 2019-06-03 10:00 | disposition home or self-care (01) ==
LOC: P.ED 09:51 → 2N 23:57 → SUATTDRO 23:57 → INTOOBSV 23:57
PROVIDERS: ADMIT Family Medicine; ATTEND Internal Medicine